=== PATIENT | female | born 1985 | race Caucasian/White ===

== ENCOUNTER 2016-12-30 00:27 | Emergency (ER) | payer BC, MEDICAID ==
--- NOTE | 2016-12-30 00:48 | ERNOTE ---
Abdominal HPI - Narrative Date of Service: 12/30/16 - General Chief Complaint: Abdominal Pain - Immun/Allergies/Home Medications Immunizatons: IMMUNIZATION HX Immunizations Up to Date Yes History of Influenza Vaccine No Hx Pneumococcal Vaccination No Allergies/Adverse Reactions: Allergies No Known Allergies Allergy (Verified 12/30/16 00:37) Home Medications: HOME MEDICATIONS Acetaminophen with Codeine [Tylenol with Codeine #3 Tablet] 1 each PO Q6H PRN [Last Taken 12/29/16 22:30] Acetaminophen with Codeine [Tylenol-Codeine 300 MG/30 MG] 1 - 2 tab PO Q6H PRN # 12 tab 12/30/16 [Last Taken Unknown] Amoxicillin 500 mg PO TID 12/30/16 [Last Taken Unknown] Calcium Carbonate [Tums] 4 tab PO PRN PRN 12/30/16 [Last Taken 12/29/16 22:30] Ondansetron HCl [Zofran] 1 - 2 mg PO Q8H PRN #30 tab 12/30/16 [Last Taken Unknown] Ranitidine HCl [Zantac] 150 mg PO HS 12/30/16 [Last Taken 12/29/16 22:30] - History of Present Illness Narrative: This is a 31-year-old at approximately 7 weeks by last menstrual period who comes to the emergency department complaining of "an ulcer attack". The patient states that she had gastric ulcers several years ago and had symptoms which were quite similar. Patient states that at that time she had endoscopy performed and treatment. She is not sure what type of treatment she had. She been doing well until recently and she started having increased attacks. These have happened over the last several weeks and it become more severe and seemed to last a little longer. This evening she experienced exquisite severe epigastric abdominal pain to the point where she was unable to care for her children. She had some nausea and vomiting as well. There was no blood in her emesis. She has had no coffee ground emesis. She has had no hematochezia. He has no urinary symptoms. She does say that she is getting a bit dizzy when she stands up. The patient denies fever or chills. She denies chest pain or shortness of breath. The patient is uncertain what can be done for her because she is 7 weeks . She has not seen her [facility], that's coming up this week. Review of Systems - Review of Systems Constitutional: Present: fatigue EYE: Present: no symptoms reported ENT: Present: no symptoms reported Respiratory: Present: no symptoms reported Cardiology: Present: no symptoms reported Gastrointestinal/Abdominal: Present: nausea, vomiting, abdominal pain Genitourinary: Present: no symptoms reported Musculoskeletal: Present: no symptoms reported Skin: Present: no symptoms reported Neurological: Present: no symptoms reported Endocrine: Present: no symptoms reported Hematologic/Lymphatic: Present: no symptoms reported Psych: Present: no symptoms reported All Other Systems: All systems neg except as marked - Patient's Past Medical History Patient History - Medical: Other Patient History - Cardiac/Respiratory: No pertinent hx Patient History - Surgical Procedures: D & C, EGD Patient History - Other: None LMP (females 10-50): - Social History Living Situations: home Psych History: Hx of Depression, Current tx/ever been on anti-depressants or anti-anxiety meds Smoking Status: Former smoker Have you smoked in the past 12 months: Yes Alcohol Use: none Drug Use: none - Immunizations Immunizations Up to Date: Yes Hx Pneumococcal Vaccination: No History of Influenza Vaccine: No Physical Exam - Physical Exam General Appearance: Present: wd/wn, alert, no apparent distress Head Exam: Present: normal inspection, no evidence of injury Eye Exam: Normal inspection: bilateral, PERRL: bilateral, EOMI: bilateral Ears, Nose, Throat: Present: normal ENT inspection, normal pharynx Neck: Present: normal inspection, nontender Respiratory: Present: no respiratory distress, normal breath sounds, lungs clear Cardiovascular/Chest: Present: regular rate, rhythm, no murmur, normal peripheral pulses Gastrointestinal/Abdominal: Present: normal bowel sounds, nontender, nondistended, soft Rectal Exam: Present: nontender, normal rectal tone, other - no masses in the rectal vault. Small amount of brown stool. Hemoccult sent to lab. Pelvic Exam: Present: deferred Back Exam: Present: normal inspection, normal range of motion, no CVA tenderness , no vertebral tenderness Extremity Exam: Present: normal inspection, non-tender, no edema Neurological Exam: Present: alert, oriented, normal mood/affect, no motor/ sensory deficits Skin Exam: Present: normal color, warm/dry Lymphatic Exam: Present: no adenopathy ED Progress - Results and Orders Patient's Lab Results:: I have reviewed the patient's lab results. - Vital Signs Patient's Vital Signs:: I have reviewed the patient's vital signs. Vital Signs: Vital Signs 12/30/16 00:31 Temperature 36.6 C Pulse Rate 80 Respiratory 18 Rate Blood Pressure 106/77 O2 Sat by Pulse 100 Oximetry - Progress/Reassessment Chief Complaint: Abdominal Pain Progress:: Unchanged Departure - Departure Clinical Impression: Abdominal pain affecting , Bacteria present Disposition: Home self-care Condition: Stable Instructions: Eating Plan for Hyperemesis Gravidarum Additional Instructions: As we discussed, there is no blood in her stool and your blood counts are all okay. While this does not mean that you don't have an ulcer, it makes it much less likely that you have a bleeding ulcer. Her nausea and vomiting certainly may be due to the . This is called hyperemesis gravidarum. I want you to take the prescribed Zofran to help with the nausea. He did have bacteria in her urine so I want you to take her previously prescribed amoxicillin. This should take care of the bladder infection or bacteria. Given to see her [facility] [employer] doctor as soon as possible. 4 severe abdominal pain you can take the prescribed Tylenol with Codeine. Do not operate machinery or drive a your taking this medicine until you it affects you. If you develop new or worrisome symptoms he should return to the emergency department. Prescriptions: Acetaminophen with Codeine [Tylenol-Codeine 300 MG/30 MG] 1 - 2 tab PO Q6H PRN # 12 tab PRN Reason: Pain Ondansetron HCl [Zofran] 1 - 2 mg PO Q8H PRN #30 tab PRN Reason: Nausea
[2016-12-30 00:57] LABS: Hematocrit 35.4 % (37.0-47.0); Hemoglobin 12.2 gm/dL (12.5-16.0); Mean Cell Volume 90.3 fl (78-100); Mean Corpuscular Hemoglobin 31.1 pg (27-31); Mean Corpuscular Hgb Conc 34.5 g/dl (32-36); Mean Platelet Volume 11.6 fl (6.0-9.5); Neutrophil % 64.8 % (42-75.0); Platelet Count 228 K/mm3 (150-450); Red Blood Count 3.92 M/mm3 (4.2-5.4); Red Cell Distribution Width 12.1 % (11.5-14.0); White Blood Count 9.3 K/mm3 (4.0-10.5)
[2016-12-30 01:09] LABS: Urine Bilirubin Negative (NEGATIVE); Urine Ketone Negative (NEGATIVE); Urine Nitrite Negative (NEGATIVE); Urine Protein Negative (NEGATIVE); Urine Specific Gravity 1.015 SP.GR. (1.005-1.010); Urine Urobilinogen Normal (NORMAL); Urine pH 6.5 pH (5.0-7.0)
[2016-12-30 01:12] LABS: Albumin * 3.9 gm/dl (3.4-5.0); Anion Gap 14.9 mmol/L (6.8-13.8); BUN/Creatinine Ratio 15.8 (9.0-21.6); Bilirubin, Total 0.3 mg/dL (0.0-1.1); Ca. Corrected For Albumin 8.4 mg/dL (8.4-10.2); Calcium * 8.6 mg/dL (7.9-10.9); Carbon Dioxide 25.6 mmol/L (24-32.6); Potassium 3.5 mmol/L (3.4-4.6); Total Protein 7.3 gm/dL (6.2-8.2)
[2016-12-30 01:23] LABS: Urine Blood 5 /ul (NEGATIVE)
[2016-12-30 01:24] LABS: Urine Appearance Clear; Urine Bacteria 3+; Urine Color Yellow; Urine RBC None Seen /hpf (0-5)
[2016-12-30] MEDS ORDERED: CEPHALEXIN MONOHYDRATE 250 MG CAPSULE PO ONE (01:45)
[2016-12-30] MEDS ORDERED: CEPHALEXIN MONOHYDRATE 250 MG CAPSULE ONE (02:09)
[2016-12-30 05:50] VITALS: BP 110/70
== END 2016-12-30 02:14 | disposition home or self-care (01) ==
LOC: ER 00:27
DX: R10.9 Unspecified abdominal pain (principal); Z33.1 Pregnant state, incidental; Z3A.01 Less than 8 weeks gestation of pregnancy; Z87.891 Personal history of nicotine dependence

== ENCOUNTER 2017-03-18 22:34 | Emergency (ER) | payer BC ==
[2017-03-18] MEDS ORDERED: ONDANSETRON HCL/PF 2 MG/ML VIAL IV ONE (23:18)
[2017-03-18] MEDS ORDERED: NORMAL SALINE 1,000 ML IV ONE (23:19)
[2017-03-18] MEDS ORDERED: FAMOTIDINE 10 MG/ML VIAL IV ONE ×2 (23:19→23:22)
[2017-03-18] MEDS ORDERED: ONDANSETRON HCL/PF 2 MG/ML VIAL ONE (23:22)
--- NOTE | 2017-03-18 23:23 | ERNOTE ---
Medical Problem HPI - General Chief Complaint: Nausea/Vomiting Time Seen by Provider: 03/18/17 23:14 Source: patient Exam Limitations: no limitations - Immun/Allergies/Home Medications Immunizations: IMMUNIZATION HX Immunizations Up to Date Yes History of Influenza Vaccine No Hx Pneumococcal Vaccination No Allergies/Adverse Reactions: Allergies No Known Allergies Allergy (Verified 12/30/16 00:37) Home Medications: HOME MEDICATIONS Calcium Carbonate [Tums] 4 tab PO PRN PRN 12/30/16 [Last Taken 12/29/16 22:30] Ondansetron HCl [Zofran] 1 - 2 mg PO Q8H PRN #30 tab 12/30/16 [Last Taken Unknown] Ranitidine HCl [Zantac] 150 mg PO HS 12/30/16 [Last Taken 12/29/16 22:30] Prenat Vit Comb.10/Iron/FA/Dha [Vitafol-Ob+Dha Combo Pack] 1 tab PO DAILY [Last Taken Unknown] Promethazine HCl [Phenergan (Promethazine)] 25 mg PO QID PRN 03/18/17 [Last Taken Unknown] Promethazine HCl 12.5 mg RC QID PRN #10 supp.rect 03/19/17 [Last Taken Unknown] - History of Present History Narrative: Pt has been vomiting since this morning, has taken ondansetron and phenergan without relief Timing: getting worse Severity: moderate, severe Review of Systems - Review of Systems Constitutional: Absent: recent illness EYE: Present: no symptoms reported ENT: Present: no symptoms reported Respiratory: Absent: shortness of breath Cardiology: Absent: chest pain Gastrointestinal/Abdominal: Present: nausea, vomiting, abdominal pain. Absent: diarrhea, constipation Genitourinary: Present: no symptoms reported Musculoskeletal: Present: no symptoms reported Skin: Absent: rash Neurological: Present: no symptoms reported Endocrine: Absent: excessive sweating, flushing Hematologic/Lymphatic: Present: no symptoms reported Psych: Present: no symptoms reported - Patient's Past Medical History Patient History - Medical: Other Patient History - Cardiac/Respiratory: No pertinent hx Patient History - Cancer: No Hx of Cancer Patient History - Surgical Procedures: D & C, EGD Patient History - Other: None - Social History Living Situations: spouse Abuse History: No History of abuse Psych History: Current tx/ever been on anti-depressants or anti-anxiety meds, Hx of Depression Smoking Status: Former smoker Have you smoked in the past 12 months: No Do you dip or chew tobacco: No Alcohol Use: none Drug Use: none - Immunizations Immunizations Up to Date: Yes Hx Pneumococcal Vaccination: No History of Influenza Vaccine: No Physical Exam - Physical Exam General Appearance: Present: wd/wn, alert, mild distress, moderate distress Head Exam: Present: normal inspection, no evidence of injury Neck: Present: normal inspection, nontender, supple Respiratory: Present: no respiratory distress, no accessory muscle use, lungs clear Cardiovascular/Chest: Present: regular rate, rhythm, no murmur, normal peripheral pulses Gastrointestinal/Abdominal: Present: tenderness - upper quads., abnormal bowel sounds - hypoactive, other - bladder non-tender, uterus appropriate size for dates and non-tender. Absent: guarding, rebound Back Exam: Present: normal inspection, normal range of motion Extremity Exam: Present: normal inspection, no edema Neurological Exam: Present: alert, oriented, normal mood/affect, no motor/ sensory deficits Skin Exam: Present: normal color, warm/dry Lymphatic Exam: Present: no adenopathy ED Progress - Results and Orders Patient's Lab Results:: I have reviewed the patient's lab results. Results and Orders: Laboratory Tests 03/18/17 03/18/17 23:58 23:58 WBC 10.7 H Hgb 12.6 Hct 36.6 L Plt Count 201 Sodium 137 Potassium 3.7 Chloride 101 Anion Gap 14.8 H BUN 9 Creatinine 0.52 Random Glucose 107 Calcium 7.9 Calcium Adj for Albumin 8.5 Total Bilirubin 0.6 AST 9 ALT 13 L Alkaline Phosphatase 37 L Total Protein 6.7 Albumin 2.9 L Amylase 40 Lipase 91 - Vital Signs Patient's Vital Signs:: I have reviewed the patient's vital signs. Vital Signs: Vital Signs 03/18/17 22:42 Temperature 36.6 C Pulse Rate 93 Respiratory 18 Rate Blood Pressure 112/65 O2 Sat by Pulse 99 Oximetry - Progress/Reassessment Chief Complaint: Nausea/Vomiting Progress:: Improved Departure Clinical Impression: Hyperemesis gravidarum - Departure Disposition: Home Follow Up Needed Condition: Good Instructions: Eating Plan for Hyperemesis Gravidarum Prescriptions: Promethazine HCl 12.5 mg RC QID PRN #10 supp.rect PRN Reason: Vomiting
[2017-03-19 00:06] LABS: Hematocrit 36.6 % (37.0-47.0); Hemoglobin 12.6 gm/dL (12.5-16.0); Mean Cell Volume 91.5 fl (78-100); Mean Corpuscular Hemoglobin 31.5 pg (27-31); Mean Corpuscular Hgb Conc 34.4 g/dl (32-36); Mean Platelet Volume 12.2 fl (6.0-9.5); Neutrophil # 9.8 K/mm3 (1.3-6.0); Neutrophil % 91.9 % (42-75.0); Platelet Count 201 K/mm3 (150-450); Red Cell Distribution Width 12.7 % (11.5-14.0); White Blood Count 10.7 K/mm3 (4.0-10.5)
[2017-03-19 00:20] LABS: BUN/Creatinine Ratio 17.3 (9.0-21.6); Carbon Dioxide 24.9 mmol/L (24-32.6); Potassium 3.7 mmol/L (3.4-4.6)
[2017-03-19 00:21] LABS: Albumin * 2.9 gm/dl (3.4-5.0); Anion Gap 14.8 mmol/L (6.8-13.8); Bilirubin, Total 0.6 mg/dL (0.0-1.1); Ca. Corrected For Albumin 8.5 mg/dL (8.4-10.2); Calcium * 7.9 mg/dL (7.9-10.9); Total Protein 6.7 gm/dL (6.2-8.2)
[2017-03-19] MEDS ORDERED: SUCRALFATE 1 G/10 ML UDC PO ONE (00:45)
[2017-03-19] MEDS ORDERED: PROMETHAZINE HCL 12.5 MG SUPP.RECT RC ONE ×2 (01:31→01:34)
[2017-03-19 01:53] VITALS: BP 94/50
== END 2017-03-19 01:43 | disposition home or self-care (01) ==
LOC: ER 22:34
DX: O21.0 Mild hyperemesis gravidarum (principal)
CPT/HCPCS: 36415; 80053; 82150; 83690; 85025; 96374; 96375; 99284; J2405